=== PATIENT | male | born 1965 | race Caucasian/White ===

== ENCOUNTER 2022-11-10 19:37 | Emergency (ER) | payer OTHER, MEDICAID, SELFPAY ==
[2022-11-10 19:41] VITALS: BP 136/117; PULSE 110; RESP 18; TEMP 36; O2SAT 84; BMI 36.6
[2022-11-10] MEDS: Ipratropium/Albuterol Sulfate 3 ML AMPUL.NEB 6 ML INHALATION (19:42)
--- NOTE | 2022-11-10 19:42 | EKG12_ITS ---
Test Reason : POST RESUS Blood Pressure : / mmHG Vent. Rate : 092 BPM Atrial Rate : 092 BPM P-R Int : 160 ms QRS Dur : 100 ms QT Int : 336 ms P-R-T Axes : 065 010 060 degrees QTc Int : 415 ms Normal sinus rhythm Normal ECG Confirmed by SOURAV OWENS, ZACHARIAH ([id number]), society editor MAYELA AUGUSTIN ([id number]) on 11/15/2022 8:33:50 AM Referred By: JOHNATHON Confirmed By:PAOLO BENJAMIN MD
[2022-11-10 19:49] VITALS: BP 139/107; PULSE 80; PULSE 89; RESP 14; O2SAT 93
[2022-11-10 19:56] LABS: Absolute Lymphocyte Count 5.28 X10^3/uL (0.83-4.51); Absolute Neutrophil Count 6.4 X10^3/uL (2.0-7.7); Basophil# 0.08 X10^3/uL; Basophil% 0.6 % (0-1); Eosinophil# 0.25 X10^3/uL; Eosinophils% 1.9 % (0-5); Hematocrit 48.1 % (40-54); Hemoglobin 15.5 g/dL (13.0-16.5); Lymphocyte # 5.28 X10^3/ul (0.83-4.51); Lymphocyte % 40.9 % (19-41); Mean Corp Hgb Conc 32.2 g/dL (32-36); Mean Corpuscular Hgb 30.9 pg (27.0-32.0); Mean Corpuscular Volume 95.8 fL (80-94); Mean Platelet Vol. 10.1 fl (6.2-12.0); NRBC Flagged by Analyzer 0 % (0-5); Neutrophil # 6.35 X10^3/uL (2.7-7.7); Neutrophil % 49.1 % (47-70); POSITIVE DIFFERENTIAL YES; Platelet Count 231 K/mm3 (150-450); RBC Distribution Width CV 14.4 % (11.6-14.6); RBC Distribution Width SD 50.6 fl (35.1-43.9); Red Blood Count 5.02 M/mm3 (4.6-6.2); White Blood Count 12.9 K/mm3 (4.4-11.0)
--- NOTE | 2022-11-10 19:56 | RAD_ITS ---
INDICATION: ET Tube placement EXAMINATION/TECHNIQUE: X-RAY - portable supine AP chest x-ray COMPARISON: None. FINDINGS: LINES/DEVICES: Endotracheal tube tip 3.8 cm above the vitaliy. LUNGS: 2.4 cm poorly defined opacity at the right apex partially overlies the right first anterior rib. No consolidations or pleural effusions. No vascular congestion. MEDIASTINUM AND CARDIOVASCULAR STRUCTURES: Cardiac silhouette not enlarged. Central airways and mediastinal contour are unremarkable. BONES AND SOFT TISSUES: Unremarkable. RAD/Chest 1 View (Portable) IMPRESSION: No radiographic evidence of acute cardiopulmonary disease. Possible 2.4 cm right apical nodule versus combination of overlying shadows. Suggest follow-up CT chest for evaluation and to exclude parenchymal nodule including neoplasia. Electronically Signed: Niles Oconnor MD at 20:36 EDT ,
[2022-11-10 19:58] LABS: Differential Indicated SCAN CRITERIA MET
--- NOTE | 2022-11-10 20:05 | EKG12_ITS ---
Test Reason : CP Blood Pressure : / mmHG Vent. Rate : 091 BPM Atrial Rate : 091 BPM P-R Int : 176 ms QRS Dur : 096 ms QT Int : 364 ms P-R-T Axes : 079 032 072 degrees QTc Int : 447 ms Normal sinus rhythm Possible Left atrial enlargement Junctional ST depression, probably normal Borderline ECG Confirmed by SOURAV OWENS, ZACHARIAH ([id number]), copy editor MAYELA AUGUSTIN ([id number]) on 11/15/2022 8:34:04 AM Referred By: CHRISTINE Confirmed By:PAOLO BENJAMIN MD
[2022-11-10 20:19] VITALS: BP 68/19; PULSE 51
[2022-11-10 20:24] LABS: BNP,B-Type NATRIURETIC PEPTIDE 8.1 pg/mL (0-100)
[2022-11-10 20:28] LABS: Differential Comment SCANNED; Troponin-I HS 6 pg/mL (3.0-78.0)
[2022-11-10 20:30] LABS: Allen Test Positive; Base Excess -22 mmol/L (-2 to +2); Bicarbonate 9.4 mmol/L (22-26); Blood Gas Specimen Type ART; O2 Delivery Device Bagging; PO2 179 mmHG (75-100); SITE L Radial; SO2 99 % (95-99); Total Carbon Dioxide 11 mmol/L; pCO2 36.1 mmHg (35-45); pH 7.02 (7.35-7.45)
--- NOTE | 2022-11-10 20:47 | NURSING ---
Amiodarone 150mg bolus administered at 1946
--- NOTE | 2022-11-10 22:53 | ED.RN ---
CONTACTED [facility] AND CAR CARDER PER PROTOCOL. TAKEN TO [facility] FOR CAR CARDER CASE.
--- NOTE | 2022-11-11 00:04 | EDS_ITS ---
HPI History of Present Illness Chief Complaint: Back Narrative Narrative: Patient is a 57-year-old male who presented in acute respiratory distress. Patient came in by EMS. It was reported that patient had a 2 to 3-minute episode of cardiopulmonary arrest prior to arrival. Information is very limited and only obtained currently from EMS staff. EMS stated that patient was picked up at home, complaint of lightheaded, dizziness, shortness of breath. Patient is also been complaining of back pain. It is noted that patient has a history of an aortic aneurysm. Patient has no PCP. Patient has no medication that he takes daily. Patient has tobacco stains to his lips. Patient was placed on a bed in room 7 initially. Patient was very agitated, slightly combative, stating that he could not breathe. Patient was thrashing around in the bed, stating over and over that he could not breathe and he was speaking in a few full sentences. Patient was talking in several sentences. Patient was not hypoxic. Patient did look ashen, did not look well. Patient looks like he may go back into cardiopulmonary arrest. Patient was moved back into trauma room 2. EKG was initially done. Patient cannot give any history except to repeat himself stating that he was I am short of breath and I cannot breathe no trauma that we are aware of, no fall, no other history obtained. [facility] Allergy/AdvReac Type Severity Reaction Status Date / Time Unable to Assess Allergy Verified 11/10/22 19:47 Social History Smoking Status: Unknown if ever smoked ROS ROS ED ROS Narrative REVIEW OF SYSTEMS: Review of systems extremely limited secondary to EMS staff and patient cannot provide any history. EXAM Physical Exam Narrative Exam Narrative: Vital signs reviewed and patient is hypoxic in the 80s, patient was placed on 3 L nasal cannula. General: The patient appears lethargic, moderate respiratory distress, patient looks ashen, slightly cyanotic, does not look well. Skin: Dry, ashen, no petechiae, purpura, slightly mottled Head: Normocephalic, atraumatic Eye: Normal conjunctiva, no drainage, EOMI. PERRL. 4/3 equal, bilateral. Ears, Nose, Mouth, and Throat: oral mucosa is dry. Patient does not have any teeth. Cardiovascular: Tachycardic regular Rate and Rhythm, no murmurs, gallops, or rubs Respiratory: Patient is in moderate respiratory distress with increased respiratory rate, speaking in 1 or 2 sentences, + accessory muscle use, lungs are clear to auscultation, no wheezing, rales or rhonchi Back: non-tender, GI: Soft, obese, no ecchymosis noted, no pulsatile mass, no rigidity or tympany. Musculoskeletal: The patient has full range of motion of all extremities and joints with no difficulty, patient is moving his arms and legs around the bed RN, slightly thrashing, will not remain still secondary to anxiety and claiming that he cannot breathe. . Patient has no motor, no sensory deficits. Neurological: A&O x1, patient would not answer what month or year it is or where he was at, patient repeated himself stating that he could I am short of breath, I cannot breathe. Psychiatric:not Cooperative; anxious Const Vital Signs: 11/10/22 19:41 11/10/22 19:49 11/10/22 20:19 Temperature 96.8 F L Temperature Source Temporal Pulse Rate 110 H 51 L Pulse Rate [12] 89 Pulse Rate [6] 80 Respiratory Rate 18 Respiratory Rate [12] 14 Respiratory Effort Respiratory Depth Blood Pressure 136/117 H 68/19 L Blood Pressure [12] 139/107 H Blood Pressure Mean 123 35 Pulse Ox 84 Oxygen Delivery Method Room Air Room Air 11/10/22 20:39 Temperature Temperature Source Pulse Rate Pulse Rate [12] Pulse Rate [6] Respiratory Rate Respiratory Rate [12] Respiratory Effort Short of Breath Respiratory Depth Shallow Blood Pressure Blood Pressure [12] Blood Pressure Mean Pulse Ox Oxygen Delivery Method MDM MDM MDM Narrative Medical decision making narrative: Approximately 60 minutes has been spent with resuscitative efforts. Patient when he arrived was in respiratory distress, repeating himself and perseverating stating that I am short of breath, I cannot breathe. When patient arrived, it appeared that patient would most likely have another episode of cardiopulmonary arrest which the EMS staff stated occurred for 2 to 3 minutes prior to arrival in the squad. Patient was ashen, pend[place], slightly mottled, not responding well, patient did not look well. Patient was moved into trauma room 2. Patient did lose his pulse, ACLS resuscitative efforts were performed. Before he was transferred from room 7 to 2, it was questionable whether patient had a shaking/tremor/minimal seizure episode. Patient was in and out of cognition. No V-fib was noted on the monitor, however it was questionable what type of arrhythmia he may have been having that could have led to the shaking, tremor, questionable seizure activity. Patient was given amiodarone bolus and drip due to this activity in case he is having some type of arrhythmia that was causing shaking/tremor/seizure. Patient had pacer pads placed. Patient's sugar was above 100. When patient was moved into trauma room 2, patient lost his pulse. ACLS resuscitative efforts were done while patient was intubated successfully by myself. Multiple rounds of ACLS resuscitation were performed. Patient was given 2 A of bicarb. Multiple doses of epinephrine were given as well, along with the amiodarone bolus and drip. Please refer to ACLS sheet for all medications given. Patient did have a brief episode of ROSC and then it was lost again. I did speak to patient's son, patient's son and patient's son's daughter. I spoke to them as patient lost his pulse again.. Patient's son was brought back into the room 2 so he could see resuscitative efforts and he remained in the room during the end of resuscitation and pronouncement of at 2031. During resuscitation, patient's son stated how he is extremely medically noncompliant, how he would take a blood pressure medication for a week and stat ed that it would give him a headache and then stop taking the medication. Patient refused to see a PCP. Patient refused to do anything for him health gallagher. Patient was a significant tobacco smoker daily. Patient's son stated that he knew the state was coming soon because patient was unhealthy and sought no medical care for attention or help. Bedside ultrasound was used by Dr. Norwood multiple times throughout the resuscitative efforts to see if patient had contractility and sustained cardiac effort. It was difficult to feel pulse throughout resuscitative efforts, at times we could feel a carotid pulse, at times it felt thready, at times there was no pulse. 2031 time of has been called, this was confirmed by bedside ultrasound by Dr. Norwood. Patient has no PCP. 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 Patient's son and [id number] came to say a 1 final goodbye to the patient before they left. Patient will not be an organ donor. Over 1 hour of time is b een spent with one-on-one care with this patient. See intubation procedure note. Critical care time >75 minutes exclusive from separate billable procedures that were performed. The following was considered in the determination of critical care but not limited to the level of medical decision making, intensive cardiac and/or respiratory monitoring, frequent vital sign monitoring, evaluation of laboratory studies, evaluation of radiographic studies, oxygen monitoring, and constant monitoring and speaking to family at bedside Lab Data Attestation: I reviewed the patient's lab results. Labs: Laboratory Results - last 24 hr 11/10/22 19:50 WBC 12.9 H RBC 5.02 Hgb 15.5 Hct 48.1 MCV 95.8 H MCH 30.9 MCHC 32.2 RDW Std Deviation 50.6 H RDW Coeff of Audi 14.4 Plt Count 231 MPV 10.1 Immature Gran % (Auto) 0.500 Neut % (Auto) 49.1 Lymph % (Auto) 40.9 [place] % (Auto) 7.0 Eos % (Auto) 1.9 Baso % (Auto) 0.6 Absolute Neuts (auto) 6.4 Absolute Lymphs (auto) 5.28 H Nucleated RBC % 0 Differential Comment SCANNED Troponin I High Sens 6 B-Natriuretic Peptide 8.1 ABG Data ABG results: ABG 11/10/22 20:25 Specimen Type ART Sample Site L Radial pH 7.02 L* Bicarbonate Actual 9.4 L Total CO2 11 Base Excess -22 L O2 Saturation 99 ABG pCO2 36.1 ABG pO2 179 H Ernesto Test Positive O2 Delivery Device Bagging Liter Flow 15.0 Crit Call To/Read Back Yes Blood Gas Notified Whom pay Radiography Diagnostic Testing: Clinical Impression(s) from Imaging Studies Chest X-Ray 11/10/22 19:56 IMPRESSION: No radiographic evidence of acute cardiopulmonary disease. Possible 2.4 cm right apical nodule versus combination of overlying shadows. Suggest follow-up CT chest for evaluation and to exclude parenchymal nodule including neoplasia. Electronically Signed: Niles Oconnor MD at 20:36 EDT , EKG Initial EKG: Attestation: I personally reviewed and interpreted this EKG as follows: Comments: EKG #1. Artifact noted, normal sinus rhythm at 91 beats a m inute. Normal axis deviation. No acute ST elevation, no acute ectopy. QTc of 447. EKG #2. EKG obtained after ROSC was obtained briefly. Normal sinus rhythm at 92 beats a minute. Normal axis deviation. No acute ST elevation, no acute ectopy. Artifact noted. No significant changes from the first EKG done. Procedures Other Procedures Procedure(s): Procedure Note. Procedure done by . Intubation. patient was preoxygenated with [id number], patient maintain oxygenation in the high 80s % saturation. A glide scope was used for 2 attempts initially with unable to pass a 8.0 ET tube the first time, and unable to pass a bougie the second attempt. A 4-0 Mac blade was used a third time, and a bougie was able to be passed through the vocal cords, then a point of the ET tube was able to be slid over the bougie and secured at 24cm at the gumline A 8.0 ET tube was used. The balloon was checked with 10 cc of air prior to used. There is no holes in the balloon. Vocal cords were visualized. The bougie/ET tube was visualized passing through the vocal cords. Patient had good color change on capnometer. Patient had equal breath sounds bilateral, good condensation in the ET tube. The ET tube was secured at 24cm at the gumline. Patient tolerated the procedure well without difficulty, no trauma was induced. . Postintubation chest x-ray was done, patient's ET tube is sitting above the vitaliy. no emesis occurred. Critical Care Time Critical care time (excluding procedures): 75-104 minutes, Including time spent: and Discussing w/Patient &/or Family/Collar Pointer Discharge Plan Triage Chief Complaint: Back ED Provider: Olivier Norwood Dx/Rx/DC Orders Clinical Impression: Signs and symptoms of severe respiratory distress, Cardiopulmonary arrest Primary Care Provider: Care Physician,No Primary Referrals: Care Physician,No Primary [Primary Care Provider] - Disposition Disposition: Discharge Date/Time: 11/10/22 22:54 Date/Time: 11/10/22 20:32
[2022-11-12 15:10] LABS: Bedside Glucose 105 mg/dL (74-106)
== END 2022-11-10 22:54 ==
LOC: ED 21:21
PROVIDERS: Emergency Provider Emergency Medicine; Visit Provider Emergency Medicine
DX: I46.9 Cardiac arrest, cause unspecified (principal); R06.03 Acute respiratory distress; F17.200 Nicotine dependence, unspecified, uncomplicated; Z91.148 Patient's other noncompliance with medication regimen for other reason; Z91.198 Patient's noncompliance with other medical treatment and regimen for other reason
CPT/HCPCS: 31500; 36600; 51702; 71045; 82803; 82962; 83880; 84484; 85025; 92950; 93005; 94640; 99284; J7030; J7050; A4216